=== PATIENT | female | born 1965 | race Caucasian/White ===

== ENCOUNTER 2021-04-21 09:00 | Emergency (ER) | payer BC ==
[~2021-04-21] VITALS: Ht 172.7 cm; Wt 57.6 kg
[2021-04-21 09:11] VITALS: BP_SYST 127
--- NOTE | 2021-04-21 09:26 | NUR ---
AMBULATED TO BED 6
--- NOTE | 2021-04-21 09:34 | NUR ---
DR CLARK IN ROOM FOR EXAM.
--- NOTE | 2021-04-21 09:38 | NUR ---
PT COMES TO ER WITH C/O LEFT KNEE PAIN FOR SEVERAL DAYS, REPORTS BEING A RUNNER. DENIES ANY NEW TRAUMA/INJURY. STEADY GAIT. STATES SHE WAS GOING UPSRTAIRS AND HEARD A POP TO LEFT KNEE, NO GROSS SWELLING NOTED. PEDAL PULSES PRSENT, DENIES ANY NUMBNESS/TINGLING. PAIN 8/10 WITH WALKING, NO PAIN WITH REST.
[2021-04-21] MEDS ORDERED: HYDROcodone/ACETAMIN 10-325 MG TAB PO ONE (09:45)
[2021-04-21] MEDS ORDERED: IBUPROFEN 800 MG TABLET PO ONE (09:45)
--- NOTE | 2021-04-21 09:46 | NUR ---
MEDICATED WITH [facility], STATES HER WILLPICK HER UP. PT REFUSED IBUPROFEN BECAUSE SHE HAD IBUPROFEN 2 HRS CLINICAL RESOURCE NURSE.
[2021-04-21] MEDS ORDERED: HYDR-3917 PO (10:28)
[2021-04-21] MEDS ORDERED: IBUP-1969 PO (10:28)
[2021-04-21 11:13] VITALS: BP_SYST 121
--- NOTE | 2021-04-21 11:14 | NUR ---
Patient given written and verbal discharge instructions and verbalizes understanding. ER MD discussed with patient the results and treatment provided. Patient in stable condition. ID arm band removed. Rx of NONE given. Patient educated on pain management and to follow up with PMD. Pain Scale 0/10 Opportunity for questions provided and answered. Medication side effect fact sheet provided.
== END 2021-04-21 11:14 | disposition home or self-care (01) ==
LOC: SED 09:00
DX: S83.92XA Sprain of unspecified site of left knee, initial encounter (principal); X50.1XXA Overexertion from prolonged static or awkward postures, initial encounter; Y93.89 Activity, other specified; Y92.89 Other specified places as the place of occurrence of the external cause; Y99.8 Other external cause status
CPT/HCPCS: 73564; 99283